=== PATIENT | female | born 1995 | race Asian ===

== ENCOUNTER 2018-02-05 20:18 | Emergency (ER) | payer OTHER | END 2018-02-05 20:50 | disposition home or self-care (01) | LOC: SCSER 20:18 | DX: R05 Cough (principal); F32.9 Major depressive disorder, single episode, unspecified; Z79.899 Other long term (current) drug therapy | CPT/HCPCS: 99283 ==

== ENCOUNTER 2018-07-09 00:25 | Emergency (ER) | payer OTHER ==
[2018-07-09] MEDS ORDERED: Acetaminophen 500 MG TAB ONE (00:52)
[2018-07-09] MEDS ORDERED: Ondansetron PF 4 MG/2 ML Vial ONE (00:52)
[2018-07-09 01:16] LABS: BHCG - Serum Negative (NEGATIVE)
[2018-07-09 01:17] LABS: Pregs Control Background? CLEAR/WHITE (CLR/WHITE); Pregs Control Bar Appear? YES (CONTROL BAR)
[2018-07-09 01:21] LABS: #Basophils 0.2 thou/uL (0.0-0.2); #Eosinphils 0.5 thou/uL (0.0-0.7); #Lymphocytes 4.9 thou/uL (1.20-3.40); #Monocytes 0.7 thou/uL (0.11-0.59); #Neutrophils 7.3 thou/uL (1.40-6.50); %Basophils 1.4 % (0.0-1.0); %Eosinophils 3.7 % (0.0-10.0); %Lymphocytes 36.1 % (21.0-51.0); %Monocytes 4.8 % (0.0-10.0); %Neutrophils 54.1 % (42.0-75.0); Elliptocytes MODERATE= 6-15 cells (100X) (0-1/hpf); Hemoglobin 12.9 g/dL (12.0-16.0); Hypochromia SLIGHT = 6-15 cells (100X) (0-5/hpf); MDiff Complete? YES; Mean Corpuscular HGB CONC 29.5 g/dL (32.0-36.0); Mean Corpuscular Hemoglobin 19.2 pg (27.0-31.0); Mean Corpuscular Volume 65.2 fL (78.0-98.0); Mean Platelet Volume 15.7 fL (7.4-10.4); Microcytosis MODERATE=15-30 cells (100X) (0-5/hpf); Ovalocytes MODERATE= 6-15 cells (100X) (0-1/hpf); Platelet Count 179 thou/uL (130-400); Platelet Morphology Comment Appears Adequate; RBC Distribution Width 14.4 % (11.5-14.5); White Blood Cell (WBC) Count 13.5 thou/uL (4.8-10.8)
[2018-07-09 01:22] LABS: ALT (SGPT) 37 U/L (8-55); AST (SGOT) 23 U/L (5-34); Albumin 4.6 g/dL (3.5-5.0); Alkaline Phosphatase 82 U/L (40-150); Anion Gap 15 mmol/L (10-20); BUN (Urea Nitrogen) 12 mg/dL (7.0-18.7); Bilirubin, Total 0.4 mg/dL (0.2-1.2); Calcium 10.6 mg/dL (7.8-10.44); Carbon Dioxide 25 mmol/L (22-29); Chloride 105 mmol/L (98-107); Globulin 3.7 g/dL (2.4-3.5); Glucose 131 mg/dL (70-105); Lipase 21 U/L (8-78); Potassium 4.3 mmol/L (3.5-5.1); Protein, Total 8.3 g/dL (6.0-8.3); Sodium 141 mmol/L (136-145)
[2018-07-09] MEDS ORDERED: Mag-Al Plus 1200 MG/1200 MG/120 MG/30 ML UDCUP ONE ×2 (01:22→01:36)
[2018-07-09] MEDS ORDERED: Lidocaine Viscous Sol 2% 15 ml UD Cup ONE (01:22)
[2018-07-09 01:37] LABS: Calc. Creatinine Clearance 0 mL/min (70-130); Estimated GFR-MDRD 72
== END 2018-07-09 01:55 | disposition home or self-care (01) ==
LOC: SCSER 00:25
DX: R10.13 Epigastric pain (principal); R51 Headache; F32.9 Major depressive disorder, single episode, unspecified; Z87.891 Personal history of nicotine dependence; Z79.899 Other long term (current) drug therapy
CPT/HCPCS: 80053; 83690; 84703; 85025; 96361; 96374; J2405

== ENCOUNTER 2018-08-16 21:50 | Emergency (ER) | payer OTHER ==
[2018-08-16] MEDS ORDERED: Ibuprofen 600 MG TAB ONE (22:15)
[2018-08-16] MEDS ORDERED: Acetaminophen 500 MG TAB ONE (23:29)
[2018-08-16 23:37] LABS: BHCG - Serum Negative (NEGATIVE); Pregs Control Background? CLEAR/WHITE (CLR/WHITE); Pregs Control Bar Appear? YES (CONTROL BAR)
[2018-08-16 23:41] LABS: ALT (SGPT) 27 U/L (8-55); AST (SGOT) 18 U/L (5-34); Albumin 4.3 g/dL (3.5-5.0); Alkaline Phosphatase 65 U/L (40-150); Anion Gap 15 mmol/L (10-20); BUN (Urea Nitrogen) 11 mg/dL (7.0-18.7); Bilirubin, Total 0.7 mg/dL (0.2-1.2); Calc. Creatinine Clearance 0 mL/min (70-130); Calcium 10.2 mg/dL (7.8-10.44); Carbon Dioxide 22 mmol/L (22-29); Chloride 104 mmol/L (98-107); Estimated GFR-MDRD Greater than 90; Globulin 3.1 g/dL (2.4-3.5); Glucose 127 mg/dL (70-105); Potassium 3.9 mmol/L (3.5-5.1); Protein, Total 7.4 g/dL (6.0-8.3); Sodium 137 mmol/L (136-145)
--- NOTE | 2018-08-16 23:48 | RAD ---
EXAM: Chest PA and lateral: HISTORY: Cough. Fever. Chills. COMPARISON: None FINDINGS: Heart: Normal cardiac silhouette Aorta: Unremarkable Pulmonary vessels: Normal Costophrenic angles: Costophrenic angles are clear. Lungs: No consolidation or masses. Pneumothorax: No pneumothorax Osseous structures: No osseous abnormalities IMPRESSION: No acute cardiopulmonary process.
[2018-08-16 23:52] LABS: #Basophils 0.1 thou/uL (0.0-0.2); #Eosinphils 0.2 thou/uL (0.0-0.7); #Lymphocytes 1.7 thou/uL (1.20-3.40); #Monocytes 0.6 thou/uL (0.11-0.59); #Neutrophils 9.4 thou/uL (1.40-6.50); %Basophils 1.1 % (0.0-1.0); %Eosinophils 1.3 % (0.0-10.0); %Monocytes 5.3 % (0.0-10.0); %Neutrophils 78.3 % (42.0-75.0); Elliptocytes SLIGHT = 2-5 cells (100X) (0-1/hpf); Hemoglobin 12.3 g/dL (12.0-16.0); Hypochromia SLIGHT = 6-15 cells (100X) (0-5/hpf); MDiff Complete? YES; Mean Corpuscular HGB CONC 31.3 g/dL (32.0-36.0); Mean Corpuscular Hemoglobin 19.7 pg (27.0-31.0); Mean Corpuscular Volume 63.1 fL (78.0-98.0); Mean Platelet Volume 16.2 fL (7.4-10.4); Microcytosis MODERATE=15-30 cells (100X) (0-5/hpf); Ovalocytes MODERATE= 6-15 cells (100X) (0-1/hpf); Platelet Count 152 thou/uL (130-400); Red Blood Cell (RBC) Count 6.23 mill/uL (4.20-5.40)
== END 2018-08-17 00:40 | disposition home or self-care (01) ==
LOC: SCSER 21:50
DX: J02.9 Acute pharyngitis, unspecified (principal)
CPT/HCPCS: 71046; 80053; 83605; 84703; 85025; 87804; 96360

== ENCOUNTER 2020-01-19 14:56 | Outpatient (CLI) | payer OTHER ==
[~2020-01-19 14:56] MED LIST: Iopamidol-370 76% 500 ML 1 ML ONE
--- NOTE | 2020-01-19 16:12 | CT ---
EXAM: CT Abdomen W WO Con PROVIDED CLINICAL HISTORY: Right hepatic lobe lesion seen on prior CT exam. COMPARISON: CT abdomen on 12/29/2019 FINDINGS: Liver is enlarged in craniocaudal dimensions measuring 21 cm. There is decreased attenuation of the l iver with focal fatty sparing adjacent to the gallbladder. Previously described ill-defined area of increased density in the right hepatic lobe segment 7 is again seen which demonstrates similar densit y to fatty sparing adjacent to the gallbladder. This ill-defined area of increased density demonstrates similar appearance to the area of fatty sparing adjacent to the gallbladder on washout i maging as well. Given the age of the patient, findings are favored to represent a benign entity and most likely secondary to focal area of fatty sparing. The lung bases, spleen, pancreas, bilateral adrenal glands, kidneys, and abdominal aorta demonstrate a normal CT appearance. There has been no interval change compared to prior study. IMPRESSION: 1. Hepatomegaly and fatty infiltration of the liver with findings favored to most likely represent ar ea of fatty sparing in segment 7 of the right hepatic lobe. 2. Above findings concerning the liver were reviewed with Dr. Noonan who is in agreement with the sary sebastian findings and assessment.
== END 2020-01-19 14:57 | disposition home or self-care (01) ==
LOC: BICCT 14:56
PROVIDERS: ATTEND Family Medicine
DX: R16.0 Hepatomegaly, not elsewhere classified (principal); K76.0 Fatty (change of) liver, not elsewhere classified
CPT/HCPCS: 74170; Q9967